=== PATIENT | female | born 1960 | race Caucasian/White ===

== ENCOUNTER 2024-09-23 10:04 | Outpatient (AMB) | payer OTHER, SELFPAY ==
--- NOTE | 2024-09-23 10:17 | A.OFFVIS_ITS ---
Vital Signs 09/23/24 10:18 Height 5 ft 6 in Weight 152 lb 1.903 oz BMI 24.5 BP 108/54 L Blood Pressure Location Lt brachial Position Sitting Pulse 60 Pulse Source Pulse Oximeter Pulse Oximetry (%) 94 Oxygen Delivery Method Room Air Intake Visit Reasons: COPD, Smoker Outbound Sales Agent Required: No Accompanied by: Self / Same As Patient Allergies levofloxacin (From Levaquin) Allergy (Intermediate, Verified 09/23/24 10:22) Hives pseudoephedrine (From Sudafed) Allergy (Intermediate, Verified 09/23/24 10:22) Insomnia Sulfa (Sulfonamide Antibiotics) Allergy (Intermediate, Verified 09/23/24 10:22) Itching tetracycline Allergy (Intermediate, Verified 09/23/24 10:22) Hives amoxicillin (From Augmentin) Allergy (Mild, Verified 09/23/24 10:22) Vomiting clarithromycin Allergy (Mild, Verified 09/23/24 10:22) Vomiting clavulanic acid (From Augmentin) Allergy (Mild, Verified 09/23/24 10:22) Vomiting morphine Allergy (Mild, Verified 09/23/24 10:22) Hypotension meperidine (From Demerol) Allergy (Unknown, Verified 09/23/24 10:22) Unknown sulfamethoxazole (From Bactrim) Allergy (Unknown, Verified 09/23/24 10:22) Unknown trimethoprim (From Bactrim) Allergy (Unknown, Verified 09/23/24 10:22) Unknown HPI Comments Details: The patient is here for apulmonary evaluation. The patient is a64 y/o woman, actives smoker with DM, CAD s/p PCI, COPD presenting with worsening respiratory symptoms. She has placed on Wixela, but developed thrush and did not tolerate it. She does respond partially to the REGGIE. She does participate at the [facility] [place] and is adherent to the program. She has not had PFTs in the last several years. [facility] Medical History (Updated 09/23/24 @ 22:29 by Josh Vo MD) Dyspnea Tobacco dependence COPD (chronic obstructive pulmonary disease) Social History (Updated 09/23/24 @ 10:25 by Josefina Ring CMA) Patient Tobacco Use Status: Current everyday Tobacco user Review of Systems Const Denies fever(s) Eyes Reports no additional complaints ENT Reports nasal congestion Card Denies chest pain and Reports dyspnea on exertion Resp Reports cough, Reports dyspnea on exertion and Reports wheezing GI Reports no additional complaints Musc Reports no additional complaints Skin/Breast Denies rash Neuro Reports no additional complaints Psych Denies depression Jamil/Lymph Reports no additional complaints Aller/Immun Reports wheezing Physical Exam Vital Signs: Last Vital Signs Pulse 60 09/23/24 10:18 BP 108/54 L 09/23/24 10:18 Pulse Ox 94 09/23/24 10:18 Oxygen Delivery Method Room Air 09/23/24 10:18 BMI result Body Mass Index 24.5 Const General: comfortable HEENT Head: Yes normocephalic Neck Neck: Yes supple Chest Chest palpation & inspection: normal inspection of the chest Resp Effort & Inspection: normal respiratory effort and prolonged expiratory phase Auscultation: diminished lung sounds Cardio Heart sounds: S1 normal heart sound present and S2 normal heart sound present GI Palpation (GI): Soft to palpation Skin General skin exam: no rashes or lesions noted Extrem General: Yes no clubbing, cyanosis or edema Assessment & Plan Assessment & Plan (1) COPD (chronic obstructive pulmonary disease): Code(s): J44.9 - Chronic obstructive pulmonary disease, unspecified Category: Medical Qualifiers: COPD type: chronic bronchitis Chronic bronchitis type: simple Qualified Code(s): J41.0 - Simple chronic bronchitis (2) Tobacco dependence: Code(s): F17.200 - Nicotine dependence, unspecified, uncomplicated Category: Medical (3) Dyspnea: Code(s): R06.00 - Dyspnea, unspecified Category: Medical Qualifiers: Dyspnea type: dyspnea on exertion Qualified Code(s): R06.09 - Other forms of dyspnea Plan Start Bevespi REGGIE as needed PFTs start Chantix starter pk [place]CT at [facility] [place] 2-3 months Orders: Orders PFT pulmonary function test Today J44.9 - Chronic obstructive pulmonary disease, unspecified Medications: New varenicline tartrate (Chantix Starting Month Box) PO PER PKG DIR 42 ea 0RF glycopyrrolate-formoterol 9-4.8 mcg (Bevespi Aerosphere) 2 puffs inhalation Q12H 10.7 grams 11RF 30 days Coding Level of Care Code New Pt Level 4 (82016) Diagnoses Simple chronic bronchitis J41.0 COPD type: chronic bronchitis Chronic bronchitis type: simple Tobacco dependence F17.200 Dyspnea on exertion R06.09 Dyspnea type: dyspnea on exertion Time Spent (min) 40
[2024-09-23 10:18] VITALS: BP 108/54; PULSE 60; O2SAT 94; BMI 24.5
--- OUTSIDE RECORDS SUMMARY | 2024-09-23 11:10 | XMS_ITS | Data Portability ---
Author Organization [facility], [facility] Address [address] [place] [address] Assessment No assessment recorded. Plan of Treatment Reminders Order Date Submit Date Provider Last Modified By Organization Details Last Modified Time Details Appointments None record ed. Lab None record ed. Referral None record ed. Procedures None record ed. Surgeries None record ed. Imaging None record ed. Medication Orders None record ed. Patient TargetsNo targets recorded. Patient InstructionsNo instructions recorded. Reason for Referral None Reported. Problems Name Problem SNOMED Code Status Onset Date Resolution Date Notes Provider Name and Address Organization Details Recorded Time Pain in finger of right hand [id number] Active 2024 Key Castro PA-C [address] [place] [address], [phone], [facility] 08:20:54 Problem Notes None recorded. Procedures Surgical History Date Name Laterality Status Provider Name and Address Organization Details Recorded Time 5 Trigger Finger Kenalog Injection completed Martínez Patrick MD [address] [place] [address], [phone], [facility] 07/10/2024 09:59:32 4 Trigger Finger Kenalog Injection completed Martínez Patrick MD [address], [place], [address], [facility] 10/01/2023 07:36:49 Imaging Results None recorded. Procedure Notes None recorded. Medical Equipment None Reported. Allergies Allergen ID Allergen Name Allergen Category Reaction Reaction Severity Criticality Documentation Date Start Date Code Code System Note Provider Name and Address Organization Details Recorded Time 51995 sulfur medicatio n Not available Not available Not available 06/05/20232020 09783 RxNorm Not Available [facility] 4 12:08:33 43855 Levaquin medicatio n Not available Not available Not available 06/05/20232020 31291 2 RxNorm Not Available [facility] 4 12:08:33 Medications Name Sig Start Date Stop Date Status Note LastModified by Organization Details LastModified Time clotrimazole 10 mg shane TAKE 1 LOZENGE BY MOUTH FIVE TIMES A DAY active Not Available Not Available No t Available nicotine 14 mg/[address] transdermal patch [address]ACE 1 PATCH ONTO THE SKIN EVERY 24 HOURS active Not Available Not Available No t Available azithromycin 250 mg tablet TAKE 1 TABLET BY MOUTH FOR 5 DAYS DIRECTED active Not Available Not Available No t Available clopidogrel 75 mg tablet TAKE 1 TABLET BY MOUTH DAILY active Not Available Not Available No t Available acetaminophen 500 mg tablet TAKE 2 TABLETS BY MOUTH EVERY 6 HOURS NEEDED FOR PAIN active Not Available Not Available No t Available levothyroxine 75 mcg tablet TAKE 1 TABLET BY MOUTH DAILY active Not Available Not Available No t Available isosorbide mononitrate ER 60 mg tablet,extende d release 24 hr TAKE 1 AND 1/2 TABLETS BY MOUTH DAILY active Not Available Not Available No t Available pantoprazole 40 mg tablet,delayed release TAKE 1 TABLET BY MOUTH TWICE DAILY active Not Available Not Available No t Available nicotine 21 mg/[address]dermal patch [address] 1 PATCH ONTO THE SKIN EVERY 24 HOURS active Not Available Not Available No t Available nitroglycerin 0.[address] 1 TABLET UNDER THE TONGUE EVERY 5 MINUTES FOR CHEST PAIN active Not Available Not Available No t Available metoprolol succinate ER 25 mg tablet,extende d release 24 hr TAKE 1 TABLET BY MOUTH DAILY active Not Available Not Available No t Available ergocalciferol (vitamin D2) 1,250 mcg (50,000 unit) capsule TAKE 1 CAPSULE BY MOUTH EVERY WEEK active Not Available Not Available No t Available fluticasone 100 mcg-salmeterol 50 mcg/dose blistr powdr for inhalation INHALE 1 PUFF BY MOUTH TWICE DAILY. RINSE MOUTH AND THROAT AFTER USE active Not Available Not Available No t Available morphine 15 mg immediate release tablet TAKE 1 TABLET BY MOUTH EVERY 6 HOURS NEEDED FOR PAIN active Not Available Not Available No t Available fluticasone propionate 50 mcg/actuation nasal spray,suspensi on SHAKE LIQUID AND USE 2 SPRAYS IN EACH NOSTRIL DAILY active Not Available Not Available No t Available metformin ER 500 mg tablet,extende d release 24 hr TAKE 2 TABLETS BY MOUTH DAILY active Not Available Not Available No t Available lisinopril 2.5 mg tablet TAKE 1 TABLET BY MOUTH DAILY active Not Available Not Available No t Available Ventolin HFA 90 mcg/actuation aerosol inhaler INHALE 2 PUFFS BY MOUTH FOUR TIMES DAILY NEEDED FOR WHEEZING active Not Available Not Available No t Available oxycodone 5 mg tablet TAKE 1 TABLET BY MOUTH EVERY 4 HOURS NEEDED active Not Available Not Available No t Available ezetimibe 10 mg tablet TAKE 1 TABLET BY MOUTH DAILY active Not Available Not Available No t Available rosuvastatin 40 mg tablet TAKE 1 TABLET BY MOUTH DAILY active Not Available Not Available No t Available Januvia 50 mg tablet TAKE 1 TABLET BY MOUTH DAILY active Not Available Not Available No t Available Januvia 100 mg tablet TAKE 1 TABLET BY MOUTH DAILY active Not Available Not Available No t Available FreeStyle Lite Meter kit USE TO CHECK SUGAR EVERY DAY active Not Available Not Available No t Available FreeStyle Lite Strips USE TO TEST BLOOD SUGAR EVERY DAY active Not Available Not Available No t Available oxycodone HCl-oxycodone- ASA as directed 1 TABLET Q 4 HOURS PRN PAIN DO NOT DIRVE WHILE ON THIS MED 2020 active Statu s: 'Curr ent'; Not Available Not Available Not Available Vitals Date Recorded Body height Body mass index (BMI) Body weight Provider Name and Address Organization Details Last Updated DateTime 07/10/2024 165.1 cm 25 kg/m2 11885.86 g [facility] 07/10/2024 09:37:30 Date Recorded Body height Body mass index (BMI) Body weight Provider Name and Address Organization Details Last Updated DateTime 09/26/2023 165.1 cm 25 kg/m2 35497.86 g [facility] 09/26/2023 13:50:40 Social History None recorded. Functional Status None recorded. Mental Status None recorded. Family History Nothing Reported. Medical History No medical history recorded. Gynecological HistoryNo gynecological history recorded. Obstetrics History GPAL:G 0 P 0 0 0 0 Past Encounters Encounter ID Performer Location Encounter Start Date Encounter Closed Date Diagnosis/Indication Diagnosis SNOMED-CT Code Diagnosis ICD10 Code Diagnosis Note [id number] [facility] [address] [address] [place] [address] 09/26/2023 13:42:42 10/17/2023 14:37:17 Flexor tenosynovitis of finger 022880852 M65.221 [id number] [facility] [address] [address] [place] [address] 07/10/2024 09:30:22 07/24/2024 11:43:42 Flexor tenosynovitis of finger [id number] M65.370 [id number] [facility], OTR/L,CHT [facility] [address] [place] [address] 08/19/2024 10:09:59 08/19/2024 11:42:42 Triggering of digit 936467986 M65.331 This visit was completed today under the supervisio n of Dr. Patrick Upon welcoming the patient from the waiting room into the clinic, I am able to observe how the involved extremity is used functional ly. The patient demonstrat es use of the surgical hand for such activities as gathering personal items, and pushing up from the chair. The patient shared their personal experience over the last 2 weeks living with a postoperat kyaw hand and modifying activities around the house. Fluctuatio ns in pain levels and the use of medication is also reviewed. The postoperat kyaw dressing is removed. The surgical wound is inspected and found to be clean and dry. The edges of the incision are approximat ed with intact sutures. Patient has intact neurovascu lar structures with only slight tenderness at the incision. No surroundin g erythema, wound drainage, warmth or signs of infection. The patient states no pain when palpating around the surgical site and the surroundin g structures . The involved digit is able to demonstrat e a nearly full composite fist. Digits are able to demonstrat e full extension, except the middle finger PIP at 20 degrees , to open hand flat on the table. The wrist has nearly full flexion/ex tension/ci rcumductio n range of motion. The patient is able to demonstrat e both tip, tripod, and lateral pinch. The distal sensation for light touch is assessed. The patient is able to demonstrat e a positive response to light touch. Postoperative visit [id number] Z48.89 Sutures are removed today without complicati on. Scar massage was demonstrat ed including a variety of movements to disperse the fibrotic tissue which, if untouched, would create a thickened area of scar. This is instructed with a handout given to the patient. Additional home exercises including tendon gliding were demonstrat ed in the office today with a handout also provided. Further discussion about the MELT technique using a small ball for palmar massage with informatio n was provided. Per the surgeon , since there are no wound care complicati ons or concerns, no follow up appointmen t needed. The patient has been educated with a significan t Home Exercise Program to be completed over the next 2 weeks. The patient was instructed to contact the office if there should arise any concerns with the surgical site or if there is not sufficient functional recovery. All questions, with regards to return to functional activities , are answered prior to leaving the office today. This office visit was complete at 15 minutes. Health Concerns Section Related Observation LastModified by Organization Detai ls LastModified Time None Recorded Concern Status LastModified by Organization Details LastModified Time None Recorded Advance Directives Directive None Recorded Payers Insurance Date Sequence Insurance Name Policy Number Policy James Covered Member ID James Member ID Guarantor Name 09/04/2024 1 [facility] - DOS ON OR AFTER 2022 - ONE CARE (MEDICARE REPLACEMENT/ADV ANTAGE - HMO) Ilda Sandoval [id number] Ilda Sandoval Notes Date Note Type Note Provider Name and Address Organization Details Recorded Time 09/26/2023 text/html Diagnosis: Flexo r tenosynovitis right middle finger status post one injectionStatus post flexor tenosynovectomy left index fingerThe patient presents at her request. She has redeveloped triggering in her right middle finger. This is associated with a sharp pain which she rates as a 3/10 in severity. She has no numbness or tingling.Past family, medical, social history and review of systems has been reviewed, updated and is located in the patient s chart.Examination: Healthy appearing patient in no apparent distress. Alert and oriented. She has symmetric range of motion of her bilateral wrists and digits. She is triggering of the right middle finger with a tender nodule at the A1 jesse. Provocative testing of wrists and digits reveal no instability. No atrophy in either upper extremity. Brisk capillary refill in all digitsPlan:The patient and I discussed the situation at length. Options include proceeding with a flexor tenosynovectomy or a repeat corticosteroid injection. We discussed the nature of the surgery and its potential risks including infection, injury to blood vessels, tendons, nerves and finger stiffness. All questions were answered. I recommended a repeat injection. Under aseptic conditions, 40mgs Kenalog 1cc of 1% lidocaine were injected into the flexor tendon sheath of her right middle finger. The patient tolerated this well. The patient will follow-up with me by phone in a month's time or sooner if there are any concerns. Martínez Patrick MD [address] [place] [address] [address], [place], [address], [facility] 10/01/2023 07:37:31 07/10/2024 text/html Diagnosis: 1. Fl exor tenosynovitis right middle finger status post 2 injections 2. Flexor tenosynovitis left middle finger The patient presents at her request. She is redeveloped triggering in her right middle finger and has early triggering of her left middle finger Past family, medical, social history and review of systems has been reviewed, updated and is located in the patient s chart. Examination: Healthy appearing patient in no apparent distress. Alert and oriented. HEENT: Normocephalic and atraumatic. Heart: Regular rate and rhythm. Lungs: Clear to auscultation bilaterally. Abdomen: Soft and nontender. Neurovascular exam: Intact bilateral upper extremities Extremities: Triggering bilateral middle fingers with tender nodules at the A1 pulleys. No atrophy in either upper extremity. Brisk capillary refill in all digits Plan:The patient and I discussed the situation at length. The patient would like to proceed with surgery in the form of a flexor tenosynovectomy. I described the nature of the surgery and potential risks including infection, injury to blood vessels, tendons, nerves, incomplete relief of symptoms and stiffness of the finger. All of the patient's questions were answered. The patient has consented to flexor tenosynovectomy right middle finger. We will perform this at the patient's earliest possible convenience. At her request, the left middle finger was injected. She tolerated this well. Martínez Patrick MD [address] [facility] [address], [place], [address], [facility] 07/10/2024 09:59:56 08/19/2024 text/html This is a 63-yea r-old woman who had a procedure for the right middle finger flexor tenosynovectomy with Dr. Patrick on 08/06/2024. She is well versed with this procedure as she has had multiple trigger finger releases. Today she presents to the office for the postoperative wound check suture removal and advised on a home program [facility] OTR/L,CHT [address] [facility] [address], [place], [address], [facility] 08/19/2024 11:40:03 OBGyn Episode No OBEpisode recorded.
== END 2024-09-23 11:28 | disposition home or self-care (01) ==
LOC: HO.HPS 10:05
PROVIDERS: PCP Nurse Practitioner Gerontology; Visit Provider Hospitalist
DX: J41.0 Simple chronic bronchitis (principal); F17.200 Nicotine dependence, unspecified, uncomplicated; R06.09 Other forms of dyspnea
CPT/HCPCS: 99204

== ENCOUNTER → 2024-09-23 10:04 | Outpatient (BNVA) | payer OTHER, SELFPAY | PROVIDERS: PCP Nurse Practitioner Gerontology; Visit Provider Hospitalist | DX: J41.0 Simple chronic bronchitis (principal); R06.09 Other forms of dyspnea; I25.10 Atherosclerotic heart disease of native coronary artery without angina pectoris; I10 Essential (primary) hypertension; F17.210 Nicotine dependence, cigarettes, uncomplicated; Z98.61 Coronary angioplasty status | CPT/HCPCS: 99202 ==

== ENCOUNTER 2024-11-22 10:31 | Outpatient (AMB) | payer OTHER, SELFPAY ==
--- OUTSIDE RECORDS SUMMARY | 2024-11-22 10:33 | XMS_ITS | Clinical Summary ---
Author Organization [facility] Address [address] [facility] [address] [place] [address] Phone Care Team Providers Care Geriatric Personal Care Aide Name Role Phone Armando Ribeiro MD Primary Care Provider [phone] Allergies Active Allergy Reactions Criticality Noted Date Comments Amoxicillin-Pot Clavulanate 05/25/19 19 Clarithromycin 05/25/2018 Levofloxacin 10/05/2006 Other Reaction(s): Hives/Urticaria Meperidine 10/26/2021 Morphine 05/18/2017 Pseudoephedrine Hcl Other 10/05/2006 hyperactivity Sulfa (Sulfonamide Antibiotics) 10/26/2021 Sulfamethoxazole-Trimethoprim 2007 Tetracycline Itching 10/05/2006 Medications clopidogreL (PLAVIX) 75 mg tablet TAKE 1 TABLET BY MOUTH DAILY 90 tablet 2 4 Active rosuvastatin (CRESTOR) 40 mg tablet Take 1 tablet (40 mg total) by mouth 1 (one) time each day. 90 tablet 2 4 Active albuterol HFA (PROAIR HFA ; PROVENTIL HFA ; VENTOLIN HFA) 90 mcg/actuation inhaler Inhale 2 Puffs into the lungs every 4 hours as needed (prn SOB). 8 Active aspirin (ASPIR-81 ORAL) Take 1 Tablet by mouth daily. Active fluticasone propionate (FLONASE) 50 mcg/actuation nasal spray 2 Sprays by Each Nare route as needed. Active levothyroxine (SYNTHROID, LEVOTHROID) 75 mcg tablet Take 75 mcg by mouth daily. Active lisinopriL (PRINIVIL,ZESTRIL ) 2.5 mg tablet Take 2.5 mg by mouth daily. Active metFORMIN (GLUCOPHAGE) 500 mg tablet Take 2 Tablets by mouth daily. Active ezetimibe (ZETIA) 10 mg tablet Take 1 tablet (10 mg total) by mouth 1 (one) time each day. 90 tablet 1 5 Active SITagliptin phosphate (Januvia) 100 mg tablet Take 1 tablet (100 mg total) by mouth 1 (one) time each day. Active Wixela Inhub 100-50 mcg/dose diskus inhaler Inhale 1 puff by mouth 2 (two) times a day. 5 Active nitroglycerin (NITROSTAT) 0.4 mg SL tabletIndications :Coronary artery disease, unspecified vessel or lesion type, unspecified whether angina present, unspecified whether [place] or transplanted heart Place 1 tablet (0.4 mg total) under the tongue every 5 (five) minutes if needed for chest pain. 25 tablet 1 5 Active isosorbide mononitrate (IMDUR) 60 mg 24 hr tablet Take 1.5 tablets by mouth daily 135 tablet 2 5 Active metoprolol succinate (TOPROL-XL) 25 mg 24 hr tablet TAKE 1 TABLET BY MOUTH DAILY 90 tablet 1 5 Active pantoprazole (PROTONIX) 40 mg EC tablet Take 1 tablet (40 mg total) by mouth 2 (two) times a day. Do not crush, chew, or split. 60 tablet 5 5 Active pantoprazole (PROTONIX) 40 mg EC tablet Take 1 tablet (40 mg total) by mouth 2 (two) times a day. Do not crush, chew, or split. 60 tablet 5 5 11/08/19 25 Discontinu ed(Reorder ) Active Problems Problem Noted Date Diagnosed Date Chest pain 05/09/2023 SOB (shortness of breath) 05/09/2023 Hyperlipidemia 04/17/2020 Overview (03/20/2024): Last Assessment & Plan: Patient's recent LDL draw was 62. Should continue on current medication regimen. Should continue to try and follow a cardiac healthy diet. Bloating 05/25/2018 Anxiety 07/05/2017 Cardiomyopathy (CMS/HCC V24, CMS/HCC V28) 2017 Overview (03/20/2024): Last Assessment & Plan: Most recent echocardiogram showing stable LVEF of 55 to 60%. She does not present with any clinical symptoms of heart failure and she is euvolemic on physical examination. Chronic atrophic gastritis 07/05/2017 Chronic pericarditis 07/05/2017 Chronic sinusitis 07/05/2017 Coronary artery disease 07/05/2017 Overview (03/20/2024): Hx of NSTEMI Last Assessment & Plan: Has history of significant coronary artery disease as outlined in the HPI above. Most recent cardiac cath revealed diffuse in-stent restenosis of the D1 stent and the vessel was jailed by the prior LAD stent. Was recommended at that time to continue medication management. Patient is not having any cardiac symptoms today. She is still smoking about 1 pack/day of cigarettes. Have educated the patient on the importance of quitting. She should continue on her current medication regimen which involves sublingual nitroglycerin, aspirin, Plavix, metoprolol, isosorbide, and rosuvastatin. Of note patient has not needed to utilize sublingual as needed nitroglycerin since her cardiac catheterization. Patient has been advised to seek medical attention if she develops chest pain or dyspnea which does not resolve with rest or sublingual nitroglycerin. Patient should continue to try and follow a cardiac healthy diet, this includes low-fat and low-salt, getting regular exercise, maintaining a healthy weight, not smoking, and following up with routine medical care. Assessment & Plan (06/21/2024 5:33 PM EDT): Patient with evidence of significant coronary disease status post multiple stenting. Remains asymptomatic. Risk factor modification in place unfortunately still smoking we had a discussion concerning smoking sensation. No recent use of supple nitroglycerin. Patient will continue with attempted risk factor modification and present medical therapy. She does have a jailed first diagonal that is not possible to be angioplastied at this time without causing some major interruption of flow in the LAD. For now she is asymptomatic we will continue medical therapy she has been instructed to contact us if she develops recurrent angina Orders: ECG 12 lead nitroglycerin (NITROSTAT) 0.4 mg SL tablet; Place 1 tablet (0.4 mg total) under the tongue every 5 (five) minutes if needed for chest pain. Diabetes mellitus type 2, un complicated ([facility] V24, [facility] V28) 07/05/2017 GERD (gastroesophageal reflux disease) 8 Hiatal hernia 07/05/2017 Migraine headache 07/05/2017 Osteopenia 07/05/2017 Vitamin D deficiency 07/05/2017 COPD (chronic obstructive pu lmonary disease) ([facility] V24, [facility] V28) 05/18/2017 Esophageal stricture 08/26/2016 Nicotine dependence 08/18/2016 Overview (03/20/2024): Last Assessment & Plan: I strongly advised that she quit smoking. She is finally ready to quit smoking and I have given her prescription for nicotine patches as well as referral to quit works. Chronic constipation 10/01/2015 Arthralgia of multiple sites 12/03/2014 Allergic rhinitis 09/03/2014 Panic disorder without agoraphobia 11/07/2013 Recurrent UTI 06/11/2008 Overview (03/20/2024): Ct scan 06/09 no calculus or obstrucitve uropathy Tobacco use disorder 10/30/2006 Essential hypertension, benign 10/05/2006 Overview (03/20/2024): Last Assessment & Plan: Patient's blood pressure is well optimized today. She should continue to high blood pressure measurements at home. She should continue on her current medication regimen. Immunizations Name Administration Dates Next Due Pneumococcal conjugate 13 va lent (Prevnar 13, PCV13) 2mo and older 04/21/2016 Td, Unspecified 04/03/2003 Surgical History Surgery Date Site/Laterality Comments SHOULDER SURGERY Left PROCEDURE: HISTORICAL SHOULDER SURGERY HYSTERECTOMY PROCEDURE: HISTORICAL HYSTERECTOMY APPENDECTOMY PROCEDURE: HISTORICAL APPENDECTOMY CARDIAC CATHETERIZATION PROCEDURE: HISTORICAL CARDIAC CATH; COMMENT: 2 stents Medical History Medical History Date Comments COPD (chronic obstructive pu lmonary disease) [place] [place] [facility] [place] 05/18/2017 DX:COPD (chronic o bstructive pulmonary disease) ([facility]) Essential hypertension, benign 10/05/2006 D X:Essential hypertension, benign; COMMENT: 10/09 holter done at [facility] nad 11/09 echo nad History of viral meningitis 10/05/2006 DX:H istory of viral meningitis; COMMENT: was admitted to [facility] .xray negative of chest 09/22/06,ct brain ethmoid sinusitis Recurrent UTI 06/11/2008 DX:Recurrent UTI ; COMMENT: Ct scan 06/09 no calculus or obstrucitve uropathy Tobacco use disorder 10/30/2006 DX:Tobacco use disorder Coronary artery disease 07/05/2017 DX:Coron jac artery disease Anxiety 07/05/2017 DX:Anxiety GERD (gastroesophageal reflu x disease) 07/05/2017 DX:GERD (gastroesophageal re flux disease) Diabetes mellitus type 2, uncomplicated [place] [place] [facility] [place]) 07/05/2017 DX:Diabetes mellitus type 2, uncomplicated ([facility]) Cardiomyopathy [place] [place], [facility] [place]) 07/05/2017 DX:Cardiomyopathy ([facility]) Chronic atrophic gastritis 07/05/2017 DX:Ch ronic atrophic gastritis Chronic pericarditis 07/05/2017 DX:Chronic pericarditis Chronic sinusitis 07/05/2017 DX:Chronic sin usitis Hiatal hernia 07/05/2017 DX:Hiatal hernia History of herpes zoster 07/05/2017 DX:Hist ory of herpes zoster Migraine headache 07/05/2017 DX:Migraine he adache Osteopenia 07/05/2017 DX:Osteopenia Vitamin D deficiency 07/05/2017 DX:Vitamin D deficiency Allergic rhinitis 09/03/2014 DX:Allergic rh initis Arthralgia of multiple sites 12/03/2014 DX: Arthralgia of multiple sites Chronic constipation 10/01/2015 DX:Chronic constipation Esophageal stricture 08/26/2016 DX:Esophage al stricture History of pericarditis 08/05/2013 DX:Histo ry of pericarditis History of upper gastrointes tinal bleeding 05/19/2016 DX:History of upper gastroin testinal bleeding Nicotine dependence 08/18/2016 DX:Nicotine dependence Panic disorder without agoraphobia 11/07/2013 DX:Panic disorder without agoraphobia Atrophic gastritis DX:Atrophic g astritis Fatigue DX:Fatigue Hypothyroidism DX:Hypothyroidis m Migraine DX:Migraine Mild chronic obstructive pul monary disease (CMS/HCC V24, CMS/HCC V28) DX:Mild chronic obs tructive pulmonary disease (HCC) Family History Medical History Relation Name Comments Diabetes Brother Heart attack Father hypertension Breast cancer Maternal Grandfather comple te left breast removed Diabetes Maternal Grandmother Hypertension Mother diabetes Breast cancer Paternal Grandmother diabet es Hypertension Sister Relation Name Status Comments Brother Alive 1,healthy Father Maternal Grandfather Maternal Grandmother Mother Alive Paternal Grandmother Sister Alive 2, Social History Tobacco Use Types Packs/Day Years Used Date Smoking Tobacco: Every Day Cigarettes Smokeless Tobacco: Never Alcohol Use Standard Drinks/Week Comments Not Currently 0 (1 standard drink = 0.6 oz pur e alcohol) Comments Unknown Sex and Gender Information Value Date Recorded Sex Assigned at Not on file Legal Sex Female 12:46 AM EST Gender Identity Not on file Sexual Orientation Not on file Obstetrics History Last Filed Vital Signs Vital Sign Reading Time Taken Comments Blood Pressure 110/68 01/01/2024 8:55 AM EDT Sit ting L Arm Pulse 65 06/21/2024 9:00 AM EDT Temperature - - Respiratory Rate - - Oxygen Saturation 97% 06/21/2024 9:00 AM EDT Inhaled Oxygen Concentration - - Weight 68.9 kg (152 lb) 06/21/2024 9:00 AM EDT Height 167.6 cm (5' 6 ) 06/21/2024 9:00 AM EDT Body Mass Index 24.53 06/21/2024 9:00 AM EDT Plan of Treatment Upcoming Encounters Date Type Department Care Team (Late st Contact Info) Description 01/01/2025 9:10 AM EDT Office Visit [facility] [address] [facility] [address] [place] [phone] Sheeba Kumar NP [address] [place] [address] [address] [place] [address] Health Maintenance Due Date Last Done Comments Breast Cancer Screening 1961 Diabetes: Annual Foot Exam 08/24/1971 Diabetes: Annual Retina Eye Exam 08/24/1971 Cervical Cancer Screening: Pap Smear 1982 Diabetes: Annual GFR (Glomerular Filtration Rate) 12/05/2008 12/06/2007 Zoster Vaccines (1 of 2) 08/24/2011 Pneumococcal Vaccine: 50+ Years (2 of 2 - PPSV23) 06/16/2016 04/21/2016 RSV Immunization Adult Patients (1 - Risk 60-74 years 1-dose series) 2021 Cholesterol Screening (Lipid Panel) 03/12/2022 Colorectal Cancer Screening: Colonoscopy 03/12/2022 Medicare Annual Wellness Visit 03/12/2022 Social Influencers of Health Screening 03/12/2022 Hypertension/CHF/CAD Annual BMP Blood Test 03/13/2022 12/06/2007 Diabetes: Annual Urine Albumin-Creatinine Ratio (uACR) 03/19/2022 Diabetes: Blood Sugar Control Test (HGBA1C) 03/19/2022 COVID-19 Vaccine ( season) 2023 07/21/2021, 02/18/2021, 07/01/2020, Additional history exists Depression Screening 04/03/2024 Influenza Vaccine (#1) 2024 , 02/11/2021, 01/15/2020, Additional history exists DTaP,Tdap,and Td Vaccines (3 - Td or Tdap) 10/19/2032 10/19/2022, 04/03/2003 HIV Screening Completed 06/19/2009 Hepatitis C Screening Completed 06/19/2009 HIB Vaccines Aged Out No longer eligi ble based on patient's age to complete this topic HPV Vaccines Aged Out No longer eligi ble based on patient's age to complete this topic Hepatitis A Vaccines Aged Out No long er eligible based on patient's age to complete this topic Hepatitis B Vaccines Aged Out No long er eligible based on patient's age to complete this topic IPV Vaccines Aged Out No longer eligi ble based on patient's age to complete this topic MMR Vaccines Aged Out No longer eligi ble based on patient's age to complete this topic Meningococcal ACWY Vaccine Aged Out N o longer eligible based on patient's age to complete this topic Meningococcal B Vaccine Aged Out No l onger eligible based on patient's age to complete this topic RSV Immunization Patients Under 20 months Aged Out No longer eligible based on patient's age to complete this topic Varicella Vaccines Aged Out No longer eligible based on patient's age to complete this topic Procedures Procedure Name Priority Date/Time Associated Diagnosis Comments HEPATITIS C SCREENING Routine 06/19/2009 HIV SCREENING Routine 06/19/2009 ANNUAL BMP BLOOD TEST Routine 12/06/2007 from Last 3 Months or Most Recently Relevant to Health Maintenance Results * HIV Screening (06/19/2009) HIV Screening Abstracted [facility] Provider HEALTH MAINTENANCE Final Result * Hepatitis C Screening (06/19/2009) Hepatitis C Screening Abstracted [facility] Provider HEALTH MAINTENANCE Final Result * Annual BMP Blood Test (12/06/2007) Annual BMP Blood Test Abstracted [facility] Provider HEALTH MAINTENANCE Final Result from Last 3 Months or Most Recently Relevant to Health Maintenance [facility] [place] [id number] [employer] MEDICARE Member Subscriber Plan / Payer (Ef fective 2022-Present) Name:Ilda Sandoval Relation to Subscriber:Self Name:Ilda Sandoval Payer ID:[id number] Group ID:[id number] Type:Not on file Address: [place] [address] [place] [address] Care Teams Geriatric Personal Care Aide Relationship Specialty Start Date End Date Armando Ribeiro MD [address] [place] [address] PCP - General Internal Medicine 05/02/13
--- OUTSIDE RECORDS SUMMARY | 2024-11-22 10:33 | XMS_ITS ---
Author Name [facility] Organization Unknown Care Team Organization Name Specialty Phone Email Start Date End Da te [facility] Termed, PROVIDER Primary Care 02/08/202211/01
--- OUTSIDE RECORDS SUMMARY | 2024-11-22 10:33 | XMS_ITS | Clinical Summary ---
Author Organization [facility] [employer] Address [address] [place] [address] [address] [place] [address] Care Team Providers Care Rouge Mixer Name Role Phone Unavailable Primary Care Provider Unavailabl e Social History Tobacco Use Types Packs/Day Years Used Date Smoking Tobacco: Never Assessed Comments Unknown Sex and Gender Information Value Date Recorded Sex Assigned at Female 01/31/2022 10:35 AM EDT Legal Sex Female 10:35 AM EDT Gender Identity Female 01/31/2022 10:35 AM EDT Sexual Orientation Straight 01/31/2022 10 :35 AM EDT Plan of Treatment Health Maintenance Due Date Last Done Comments CT Colonography 1961 Colonoscopy 1961 Colorectal Cancer Screening 1961 Depression Screening 1961 FIT DNA/Cologuard 1961 FIT 1961 FOBT 1961 Sigmoidoscopy 1961 Disability Screening 1961 Alcohol/Substance Use Screening 1973 Tobacco Screening 1973 DTaP/Tdap/Td Vaccines (1 - Tdap) 1980 Pap Smear 1982 Cervical Cancer Screening 08/24/1991 HPV/Cotest 08/24/1991 Mammogram 2001 Pneumococcal Vaccine: 50+ Ye ars (1 of 1 - PCV) 08/24/2011 Zoster Vaccines (1 of 2) 08/24/2011 COVID-19 Vaccine ( - 2023-2 5 season) 2023 Influenza Vaccine (#1) 2024 RSV Patients and Pa tients Aged 60 years or older (1 - 1-dose 75+ series) 2036 HIB Vaccines Aged Out No longer eligi [...] patient's age to complete this topic Meningococcal Vaccine Aged Out No yaquelin solomon eligible based on patient's age to complete this topic RSV under 20 months Aged Out No longe r eligible based on patient's age to complete this topic Rotavirus Vaccines Aged Out No longer eligible based on patient's age to complete this topic
--- NOTE | 2024-11-22 10:35 | MHC.OFFVIS ---
Vital Signs 11/22/24 10:36 Height 5 ft 6 in Weight 154 lb BMI 24.9 BP 98/58 L Blood Pressure Location Lt brachial Position Sitting Pulse 66 Pulse Source Pulse Oximeter Pulse Oximetry (%) 97 Oxygen Delivery Method Room Air Intake Visit Reasons: 2m F/U PFT Allergies levofloxacin (From Levaquin) Allergy (Intermediate, Verified 09/23/24 10:22) Hives pseudoephedrine (From Sudafed) Allergy (Intermediate, Verified 09/23/24 10:22) Insomnia Sulfa (Sulfonamide Antibiotics) Allergy (Intermediate, Verified 09/23/24 10:22) Itching tetracycline Allergy (Intermediate, Verified 09/23/24 10:22) Hives amoxicillin (From Augmentin) Allergy (Mild, Verified 09/23/24 10:22) Vomiting clarithromycin Allergy (Mild, Verified 09/23/24 10:22) Vomiting clavulanic acid (From Augmentin) Allergy (Mild, Verified 09/23/24 10:22) Vomiting morphine Allergy (Mild, Verified 09/23/24 10:22) Hypotension meperidine (From Demerol) Allergy (Unknown, Verified 09/23/24 10:22) Unknown sulfamethoxazole (From Bactrim) Allergy (Unknown, Verified 09/23/24 10:22) Unknown trimethoprim (From Bactrim) Allergy (Unknown, Verified 09/23/24 10:22) Unknown HPI Comments Details: The patient is a64 y/o woman, actives smoker with DM, CAD s/p PCI, COPD presenting with worsening respiratory symptoms. She has placed on Wixela, but developed thrush and did not tolerate it. She does respond partially to the REGGIE. She does participate at the [facility] LDCT and is adherent to the program. She has not had PFTs in the last several years. 11/22/2024 the patient is here for pulmonary follow-up visit. Overall she is doing okay. The Bevespi was not effective for. He is coughing her to cough more. Therefore she stopped it. The patient also started the Chantix and he initially she did well and she was smoking less but then she went to the full though she was having difficulty with increased side effects so she had to stop it. The patient does want to try that again but we can keep it at a low dose ideally half dose to allow her to tolerated without the significant adverse effects. If at some point she can not tolerate it better we can increase the dose of the full dose. The patient continues have productive cough chest congestion. Consistent with chronic bronchitis. Will go ahead and start her on Advair HFA. She already was on Wixela and results that on the thrush from the powder inhalers. Therefore will start her on a HFA inhalers such as Advair which should be more effective May if she has any difficulties we can also add a spacer. The patient is participating in the lung cancer screening program at [facility] which she will continue. In her PFTs will be in December. The patient follow-up in 6 months if she has not issues prior to that she will call for further recommendations. [facility] Medical History (Updated 09/23/24 @ 22:29 by Josh Vo MD) Dyspnea Tobacco dependence COPD (chronic obstructive pulmonary disease) Social History (Updated 09/23/24 @ 10:25 by Josefina Ring CMA) Patient Tobacco Use Status: Current everyday Tobacco user Review of Systems Const Denies fever(s) Eyes Reports no additional complaints ENT Reports nasal congestion Card Denies chest pain and Reports dyspnea on exertion Resp Reports cough, Reports dyspnea on exertion and Reports wheezing GI Reports no additional complaints Musc Reports no additional complaints Skin/Breast Denies rash Neuro Reports no additional complaints Psych Denies depression Jamil/Lymph Reports no additional complaints Aller/Immun Reports wheezing Physical Exam Vital Signs: Last Vital Signs Pulse 66 11/22/24 10:36 BP 98/58 L 11/22/24 10:36 Pulse Ox 97 11/22/24 10:36 Oxygen Delivery Method Room Air 11/22/24 10:36 BMI result Body Mass Index 24.9 Const General: comfortable HEENT Head: Yes normocephalic Neck Neck: Yes supple Chest Chest palpation & inspection: normal inspection of the chest Resp Effort & Inspection: normal respiratory effort and prolonged expiratory phase Auscultation: diminished lung sounds Cardio Heart sounds: S1 normal heart sound present and S2 normal heart sound present GI Palpation (GI): Soft to palpation Skin General skin exam: no rashes or lesions noted Extrem General: Yes no clubbing, cyanosis or edema Assessment & Plan Assessment & Plan (1) COPD (chronic obstructive pulmonary disease): Code(s): J44.9 - Chronic obstructive pulmonary disease, unspecified Category: Medical Qualifiers: COPD type: chronic bronchitis Chronic bronchitis type: simple Qualified Code(s): J41.0 - Simple chronic bronchitis (2) Tobacco dependence: Code(s): F17.200 - Nicotine dependence, unspecified, uncomplicated Category: Medical (3) Dyspnea: Code(s): R06.00 - Dyspnea, unspecified Category: Medical Qualifiers: Dyspnea type: dyspnea on exertion Qualified Code(s): R06.09 - Other forms of dyspnea Plan stop Bevespi start Advair HFA REGGIE as needed start low dose chantix LDCT at [facility] F/U 6-8 months Medications: New fluticasone propion-salmeterol 115-21 mcg/actuation (Advair HFA) 2 puffs inhalation Q12H 12 grams 11RF 30 days varenicline tartrate (Chantix) administer on days 4, 5, 6, and 7 of therapy 0.5 mg PO BID 60 tabs 3RF 30 days Coding Level of Care Code Est Pt Level 4 (83641) Diagnoses Simple chronic bronchitis J41.0 COPD type: chronic bronchitis Chronic bronchitis type: simple Tobacco dependence F17.200 Dyspnea on exertion R06.09 Dyspnea type: dyspnea on exertion Time Spent (min) 16
[2024-11-22 10:36] VITALS: BP 98/58; PULSE 66; O2SAT 97; BMI 24.9
== END 2024-11-22 10:57 | disposition home or self-care (01) ==
LOC: HO.HPS 10:32
PROVIDERS: PCP Nurse Practitioner Gerontology; Visit Provider Hospitalist
DX: J41.0 Simple chronic bronchitis (principal); F17.200 Nicotine dependence, unspecified, uncomplicated; R06.09 Other forms of dyspnea
CPT/HCPCS: 99214

== ENCOUNTER → 2024-11-22 10:31 | Outpatient (BNVA) | payer OTHER, SELFPAY | PROVIDERS: PCP Nurse Practitioner Gerontology; Visit Provider Hospitalist | DX: J41.0 Simple chronic bronchitis (principal); F17.200 Nicotine dependence, unspecified, uncomplicated; R06.09 Other forms of dyspnea | CPT/HCPCS: 99212 ==

== ENCOUNTER 2024-12-04 13:14 | Outpatient (REF) | payer OTHER, SELFPAY ==
--- NOTE | 2024-12-04 13:56 | PFT_ITS ---
Flows: FEV1: 83 % of predicted at 2.14 L FVC: 101 % of predicted at 3.32 L FEV1/FVC: 65 % Bronchodilator response: Absent Volumes: Total lung capacity: 91 % of predicted at 4.95 L Residual volume: 98 % of predicted at 1.89 L Slow vital capacity: 87 % of predicted at 3.06 L Expiratory reserve volume: 108 % of predicted at 0.94 L Diffusion capacity: Mildly decreased, corrects to normal after adjustment for alveolar ventilation. Impression: Mild obstructive ventilatory defect with no bronchodilator response. Decreased diffusion capacity suggests emphysema. MTDD
[2024-12-04 14:34] VITALS: PULSE 60; O2SAT 97
--- OUTSIDE RECORDS SUMMARY | 2024-12-04 15:35 | XMS_ITS | Encounter Summary ---
Author Organization [facility] Address [address] [place] [address] [address] [place] [address] Care Team Providers Care Thermometer Maker Name Role Phone Unavailable Primary Care Provider Unavailabl e Encounter Details Date Type Department Care Team (Latest Contact Info) Description 10/14/2020 Abstract [facility] CONVERSIONS Dental, Provider, DDS Social History Tobacco Use Types Packs/Day Years Used Date Smoking Tobacco: Never Assessed Comments Unknown Sex and Gender Information Value Date Recorded Sex Assigned at Female 01/31/2022 10:35 AM EDT Legal Sex Female 10:35 AM EDT Gender Identity Female 01/31/2022 10:35 AM EDT Sexual Orientation Straight 01/31/2022 10 :35 AM EDT documented as of this encounter Plan of Treatment Not on file documented as of this encounter Visit Diagnoses Not on filedocumented in this encounter
--- OUTSIDE RECORDS SUMMARY | 2024-12-04 15:35 | XMS_ITS | Clinical Summary ---
Author Organization [facility] [employer] Address [address] [place] [address] [address] [place] [address] Care Team Providers Care Gaming Associate Name Role Phone Unavailable Primary Care Provider [...]
--- OUTSIDE RECORDS SUMMARY | 2024-12-04 15:35 | XMS_ITS | Clinical Summary ---
Author Organization [facility] [employer] [facility] Address [address] [place] [address] Phone Care Team Providers Care Manager Financial Planning Name Role Phone Armando Ribeiro MD Primary Care Provider [phone] Allergies Active Allergy Reactions Criticality Noted Date Comments Amoxicillin-Pot Clavulanate 05/25/19 19 Clarithromycin 05/25/2018 Levofloxacin 10/05/2006 Other Reaction(s): Hives/Urticaria Meperidine 10/26/2021 Morphine 05/18/2017 Pseudoephedrine Hcl Other 10/05/2006 hyperactivity Sulfa (Sulfonamide Antibiotics) 10/26/2021 Sulfamethoxazole-Trimethoprim 2007 Tetracycline Itching 10/05/2006 Medications clopidogreL (PLAVIX) 75 mg tablet TAKE 1 TABLET BY MOUTH DAILY 90 tablet 2 03/07/20 24 Active albuterol HFA (PROAIR HFA ; PROVENTIL HFA ; VENTOLIN HFA) 90 mcg/actuation inhaler Inhale 2 Puffs into the lungs every 4 hours as needed (prn SOB). 09/14/19 18 Active aspirin (ASPIR-81 ORAL) Take 1 Tablet by mouth daily. Active fluticasone propionate (FLONASE) 50 mcg/actuation nasal spray 2 Sprays by Each Nare route as needed. Active levothyroxine (SYNTHROID, LEVOTHROID) 75 mcg tablet Take 75 mcg by mouth daily. Active lisinopriL (PRINIVIL,ZESTRI L) 2.5 mg tablet Take 2.5 mg by mouth daily. Active metFORMIN (GLUCOPHAGE) 500 mg tablet Take 2 Tablets by mouth daily. Active SITagliptin phosphate (Januvia) 100 mg tablet Take 1 tablet (100 mg total) by mouth 1 (one) time each day. Active Wixela Inhub 100-50 mcg/dose diskus inhaler Inhale 1 puff by mouth 2 (two) times a day. 06/11/19 25 Active nitroglycerin (NITROSTAT) 0.4 mg SL tabletIndication s:Coronary artery disease, unspecified vessel or lesion type, unspecified whether angina present, unspecified whether [place] or transplanted heart Place 1 tablet (0.4 mg total) under the tongue every 5 (five) minutes if needed for chest pain. 25 tablet 1 06/22/19 25 Active isosorbide mononitrate (IMDUR) 60 mg 24 hr tablet Take 1.5 tablets by mouth daily 135 tablet 2 07/03/19 25 Active metoprolol succinate (TOPROL-XL) 25 mg 24 hr tablet TAKE 1 TABLET BY MOUTH DAILY 90 tablet 1 10/19/19 25 Active pantoprazole (PROTONIX) 40 mg EC tablet Take 1 tablet (40 mg total) by mouth 2 (two) times a day. Do not crush, chew, or split. 60 tablet 5 11/08/19 25 Active ezetimibe (ZETIA) 10 mg tablet TAKE 1 TABLET(10 MG) BY MOUTH 1 TIME EACH DAY 90 tablet 1 12/05/19 25 Active rosuvastatin (CRESTOR) 40 mg tablet TAKE 1 TABLET(40 MG) BY MOUTH 1 TIME EACH DAY 90 tablet 2 12/05/19 25 Active rosuvastatin (CRESTOR) 40 mg tablet Take 1 tablet (40 mg total) by mouth 1 (one) time each day. 90 tablet 2 03/19/20 24 025 Discontinued pantoprazole (PROTONIX) 40 mg EC tablet Take 1 tablet (40 mg total) by mouth 2 (two) times a day. Do not crush, chew, or split. 60 tablet 5 04/22/19 25 025 Discontinued(Re order) ezetimibe (ZETIA) 10 mg tablet Take 1 tablet (10 mg total) by mouth 1 (one) time each day. 90 tablet 1 06/12/19 25 025 Discontinued Active Problems Problem Noted Date Diagnosed Date Chest pain 05/09/2023 SOB (shortness of breath) 05/09/2023 Hyperlipidemia 04/17/2020 Overview (03/20/2024): Last Assessment & Plan: Patient's recent LDL draw was 62. Should continue on current medication regimen. Should continue to try and follow a cardiac healthy diet. Bloating 05/25/2018 Anxiety 07/05/2017 Cardiomyopathy (CMS/[facility] V24, CMS/HCC V28) 2017 Overview (03/20/2024): Last [...] pain. Diabetes mellitus type 2, un complicated ([facility] V24, [facility] V28) 07/05/2017 GERD (gastroesophageal reflux disease) 8 Hiatal hernia 07/05/2017 Migraine headache 07/05/2017 Osteopenia 07/05/2017 Vitamin D deficiency 07/05/2017 COPD (chronic obstructive pu lmonary disease) ([facility] V24, [facility] V28) 05/18/2017 Esophageal stricture 08/26/2016 Nicotine dependence [...] Comments COPD (chronic obstructive pu lmonary disease) ([facility] V24, [facility] V28) 05/18/2017 DX:COPD (chronic o bstructive pulmonary disease) ([facility]) Essential hypertension, benign 10/05/2006 D X:Essential hypertension, benign; COMMENT: 10/09 holter done at [facility] nad 11/09 echo nad History of viral meningitis 10/05/2006 DX:H istory of viral meningitis; COMMENT: was admitted to [facility] .xray negative of chest 09/22/06,ct brain ethmoid sinusitis Recurrent UTI 06/11/2008 DX:Recurrent UTI ; COMMENT: Ct scan 06/09 no calculus or obstrucitve uropathy Tobacco use disorder 10/30/2006 DX:Tobacco use disorder Coronary artery disease 07/05/2017 DX:Coron jac artery disease Anxiety 07/05/2017 DX:Anxiety GERD (gastroesophageal reflu x disease) 07/05/2017 DX:GERD (gastroesophageal re flux disease) Diabetes mellitus type 2, uncomplicated ([facility] V24, [facility] V28) 07/05/2017 DX:Diabetes mellitus type 2, uncomplicated ([facility]) Cardiomyopathy ([facility] V24, [facility] V28) 07/05/2017 DX:Cardiomyopathy ([facility]) Chronic atrophic gastritis 07/05/2017 DX:Ch ronic atrophic [...] 9:10 AM EDT Office Visit [facility] [address] [place] [address] Sheeba Kumar NP [address] [place] [address] [place] [address] Health Maintenance Due Date Last Done Comments [...] Diabetes: Blood Sugar Control Test (HGBA1C) 03/19/2022 Depression Screening 04/03/2024 COVID-19 Vaccine ( season) 2024 07/21/2021, 02/18/2021, 07/01/2020, Additional history exists Influenza Vaccine (#1) 2024 , 02/11/2021, 01/15/2020, [...] Health Maintenance Results * HIV Screening (06/19/2009) [facility] HIV Screening Abstracted [facility] Provider HEALTH MAINTENANCE Final Result * Hepatitis C Screening (06/19/2009) Pathologist [facility] Hepatitis C Screening Abstracted [facility] Provider HEALTH MAINTENANCE Final Result * Annual BMP Blood Test (12/06/2007) Pathologist [facility] Annual BMP Blood Test Abstracted [facility] Provider HEALTH MAINTENANCE Final Result from Last 3 Months or Most Recently Relevant to Health Maintenance Insurance [facility] MEDIC[facility] Member Subscriber Plan / Payer (Ef fective 2022-Present) Name:Ilda Sandoval Relation to Subscriber:Self Name:Ilda Sandoval Payer ID:[id number] Group ID:[id number] Type:Not on file Address: [place] [address] [address] [id number] Care Teams Manager Financial Planning Relationship Specialty Start Date End Date Armando Ribeiro MD [address] [place] [address] PCP - General Internal Medicine 05/02/13
--- OUTSIDE RECORDS SUMMARY | 2024-12-04 15:35 | XMS_ITS | Encounter Summary ---
Author Organization [employer] [facility] Address [address] [place] [address] [address] [place] [address] Care Team Providers Care Academic Interventionist Name Role Phone Unavailable Primary Care Provider Unavailabl e Encounter Details Date Type Department Care Team (Latest Contact Info) Description 12/06/2018 Abstract C CONVERSIONS Dental, Provider, DDS Social History Tobacco [...]
== END 2024-12-04 13:15 | disposition home or self-care (01) ==
LOC: HO.RESP 13:14
PROVIDERS: PCP Nurse Practitioner; Visit Provider Hospitalist
DX: J44.9 Chronic obstructive pulmonary disease, unspecified (principal)
CPT/HCPCS: 94010; 94640; 94727; 94729

== ENCOUNTER → 2024-12-04 13:56 | Outpatient (BNV) | payer OTHER, SELFPAY | PROVIDERS: PCP Nurse Practitioner; Visit Provider Internal Medicine Pulmonary Disease | DX: J44.9 Chronic obstructive pulmonary disease, unspecified (principal) | CPT/HCPCS: 94060; 94727; 94729 ==